=== PATIENT | female | born 1990 | race Caucasian/White ===

== ENCOUNTER 2017-04-06 08:56 | Outpatient (CLI) | payer OTHER ==
--- NOTE | 2017-04-06 10:42 | DIAGNOSTIC IMAGING REPORT ---
PROCEDURE: US COMPLETE PELVIC W/TRANSVAG INDICATION: Abnormal uterine bleeding for 1 month. TECHNIQUE: Transabdominal and endovaginal hernandes scale and color Doppler sonographic images of the female pelvis were obtained. COMPARISON: 06/13/2012 FINDINGS: TRANSABDOMINAL SCANS: Anteverted uterus measures about a 6.9 cm in length. Normal contour and echotexture. Normal adnexa without suspicious mass. The visible portion of the urinary bladder is normal. No significant free pelvic fluid. TRANSVAGINAL SCANS: The uterus is anteverted anteflexed in position and has a homogeneous myometrial echotexture. The uterus measures approximately 5.0 x 3.3 x 5.4 cm. Normal myometrial vascularity. The endometrium is 3 mm in thickness. No endometrial fluid or suspicious mass. Interval resolution of previously seen echogenic endometrial focus. The right ovary measures 2.2 x 1.5 x 2.2 cm and has a normal follicular echotexture. There is normal arterial ovarian flow present. Venous flow was not able to be obtained. The left ovary measures 2.2 x 1.7 x 1.3 cm and also has a normal follicular echotexture and normal vascularity. No suspicious adnexal masses or free pelvic fluid. IMPRESSION: 1. Normal pelvic ultrasound.
== END 2017-04-06 23:00 ==
LOC: US SRH 08:56
DX: N93.9 Abnormal uterine and vaginal bleeding, unspecified (principal)